=== PATIENT | male | born 2000 | race Caucasian/White ===

== ENCOUNTER 2023-05-15 10:36 | Outpatient (REF) | payer OTHER, SELFPAY | END 2023-05-15 10:37 | disposition home or self-care (01) | LOC: HO.LNP 10:36 | PROVIDERS: PCP Internal Medicine; Referring Provider Internal Medicine; Visit Provider Surgery | DX: L72.0 Epidermal cyst (principal) | CPT/HCPCS: 11403; 88304 ==

== ENCOUNTER 2023-05-15 10:36 | Outpatient (AMB) | payer OTHER, SELFPAY ==
[2023-05-15 10:41] VITALS: BP 128/60; PULSE 65; BMI 28.7
--- NOTE | 2023-05-15 10:41 | MHC.OFFVIS ---
Intake Vital Signs 05/15/23 10:41 Height 6 ft Weight 212 lb BMI 28.7 BP 128/60 Blood Pressure Location Rt brachial Position Sitting Pulse 65 Intake Visit Reasons: Sebaceous cyst, anterior chest wall Intake Note: Patient referred for cyst on mid chest. Has been present for 2-3 yrs. C/o discomfort to touch. Denies oozing, itch. 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 He has had this indeterminate time. His increasing size, become more symptomatic. He wished to have the it excised. Chart was reviewed patient evaluated COUNTS INCLUDE 234 BEDS AT THE [facility] Social History (Updated 05/15/23 @ 10:47 by PAVEL Figueroa) Alcohol intake: never Patient Tobacco Use Status: Never used Tobacco Physical Exam Vital Signs: Last Vital Signs Pulse 65 05/15/23 10:41 BP 128/60 05/15/23 10:41 BMI result Body Mass Index 28.7 Chest Other: Approximately 3 x 2 cm mid anterior chest wall mass consistent with a large sebaceous cyst. Office Procedures Excision Details: Risks, benefits, alternatives of excision of anterior chest wall cyst reviewed the patient and included but not limited to bleeding, infection, recurrence, numbness, pain, scarring the patient was to proceed. All questions were answered. After appropriate positioning, patient underwent 1% lidocaine and Betadine prep and a transverse incision was made between his 2 anterior chest wall tattoos in the mid anterior chest over the cyst in question and carried down through skin, subcutaneous tissue, with uneventful excision of approximately 3 x 2 cm sebaceous cyst was uneventfully performed. Specimen sent to pathology. Wound was irrigated, secured hemostasis, and closed using running 3-0 Vicryl suture followed by Steri-Strips and sterile dressings. Patient tolerated procedure well. 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 Patient will see me as directed or p.r.n.. Orders: Orders AMB Excision Today L72.3 - Sebaceous cyst Coding Level of Care Code New Pt Level 4 (31739) Diagnoses Sebaceous cyst L72.3 CPT Codes Trunk/Arms/Legs - CPT: 00699-nytqe/arms/legs 2.1-3cm ([id number])
== END 2023-05-15 11:10 | disposition home or self-care (01) ==
PROVIDERS: PCP Internal Medicine; Referring Provider Internal Medicine; Visit Provider Surgery
DX: L72.0 Epidermal cyst (principal)
CPT/HCPCS: 11403; 99204

== ENCOUNTER 2023-05-21 09:33 | Outpatient (AMB) | payer OTHER, SELFPAY ==
[2023-05-21 09:36] VITALS: BP 124/62; PULSE 93; BMI 28.5
--- NOTE | 2023-05-21 09:36 | MHC.OFFVIS ---
Intake Vital Signs 05/21/23 09:36 Height 6 ft Weight 210 lb BMI 28.5 BP 124/62 Blood Pressure Location Rt brachial Position Sitting Pulse 93 Intake Visit Reasons: s/p excision of sebaceous cyst, chest wall Intake Note: Patient here s/p exc on chest. Reports incision healing well. Denies pain, oozing, itch. 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 He has no wound issues or complaints. Pathology is benign. [facility] Surgical History History of excision of epidermal inclusion cyst (05/15/23) Social History Alcohol intake: never Patient Tobacco Use Status: Never used Tobacco Physical Exam Vital Signs: Last Vital Signs Pulse 93 05/21/23 09:36 BP 124/62 05/21/23 09:36 BMI result Body Mass Index 28.5 Chest Other: Wound clean dry and intact healing uneventfully Assessment & Plan Assessment & Plan (1) Sebaceous cyst: Code(s): L72.3 - Sebaceous cyst Plan Patient has been given local wound instructions, and will follow-up p.r.n. Coding Level of Care Code Global (86916) Diagnoses Sebaceous cyst L72.3
== END 2023-05-21 09:41 | disposition home or self-care (01) ==
PROVIDERS: PCP Internal Medicine; Visit Provider Surgery
DX: L72.3 Sebaceous cyst (principal)
CPT/HCPCS: 99024

== ENCOUNTER → 2023-05-21 09:33 | Outpatient (BNVA) | payer OTHER, SELFPAY | PROVIDERS: PCP Internal Medicine; Visit Provider Surgery ==

== ENCOUNTER 2023-10-11 13:40 | Outpatient (REF) | payer OTHER, SELFPAY ==
--- NOTE | ~2023-10-11 | MR_ITS ---
EXAMINATION: MR LOWER LEG WITHOUT CONTRAST, RIGHT CLINICAL INFORMATION: Remote injury. Right calf pain. Myositis ossificans. Paresthesias. COMPARISON: None available. TECHNIQUE: Multisequence MR imaging of the right lower leg was obtained without contrast on a high-field strength scanner. FINDINGS: BONE: No marrow edema. No stress reaction, fracture, or avascular necrosis. No concerning lytic or blastic osseous lesion. MUSCLES/TENDONS: Along the anterior margin of the mid medial gastrocnemius muscle, there is a lobulated fat signal focus measuring 2.7 x 2.9 x 12 cm (AP by ML by CC). This appears to be intramuscular with mild expansion. There are internal septae without an associated soft tissue mass. No inflammatory change or adjacent soft tissue edema. Findings could represent an intramuscular lipoma. No definite calcification; however, evaluation is somewhat limited on MR imaging. Otherwise, the visualized muscles and tendons are intact. No edema or evidence of acute injury. No evidence of acute myositis. SOFT TISSUES: No additional soft tissue mass or fluid collection. MR/MR lower leg RT wo con IMPRESSION: 1. Lobulated fat signal focus along the anterior margin of the mid medial gastrocnemius muscle measuring up to 12 cm. This appears to be intramuscular with mild expansion. No associated soft tissue mass or inflammatory change. Findings could represent an intramuscular lipoma. No definite calcification, however, evaluation somewhat limited on MR imaging. 2. No acute muscle or tendon injury.
== END 2023-10-11 13:41 | disposition home or self-care (01) ==
LOC: HO.MRI 13:40
PROVIDERS: Visit Provider Internal Medicine
DX: M79.661 Pain in right lower leg (principal); R20.2 Paresthesia of skin
CPT/HCPCS: 73718

== ENCOUNTER 2024-06-06 18:15 | Emergency (ER) | payer OTHER, SELFPAY ==
--- NOTE | ~2024-06-06 | CT_ITS ---
EXAMINATION: CT HEAD WITHOUT CONTRAST CLINICAL INFORMATION: Left-sided facial weakness COMPARISON: None available. TECHNIQUE: Contiguous axial imaging was performed from the skull base to vertex without intravenous administration of contrast. This CT examination was performed using dose optimization techniques as appropriate, variously including the following: *Automated exposure control *Adjustment of mA and/or kV according to patient size (this includes techniques or standardized protocols for targeted exams where dose is matched to indication/reason for exam; i.e. extremities or head) *Use of iterative reconstruction technique DLP: 730 mGy-cm RESULTS: There is no evidence of acute intracranial hemorrhage, acute large vessel infarct, midline shift or mass effect. The anders-white differentiation is preserved. The ventricles and sulci are within normal limits in size and configuration. There is no evidence of hydrocephalus. There are no extraaxial collections. Osseous structures are intact. Paranasal sinuses and mastoid air cells are well aerated. CT/CT head/brain wo IV con IMPRESSION: Unremarkable non-contrast CT of the brain. Electronically signed by: Mari Barry MD 06/06/2024 06:40 PM EDT
[2024-06-06 18:16] VITALS: BP 130/97; PULSE 77; RESP 16; TEMP 36.6; O2SAT 98; BMI 33.0
--- NOTE | 2024-06-06 18:19 | ED.GENADULT ---
HPI - General Adult General Chief complaint: Neuro Symptoms/Deficit Stated complaint: Left side face numbness Time Seen by Provider: 06/06/24 20:13 Source: patient Limitations: no limitations History of Present Illness ED Provider: Florecita faulkner PA-C HPI narrative: 19-year-old otherwise healthy male presents with left-sided facial droop x2 days. Symptoms are subtle, but they involve the eye in the corner of the mouth. Sensation intact. 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 No preceding head trauma. Related Data Home Medications ?Medication ?Instructions ?Recorded ?Confirmed No Known Home Meds 05/15/23 Allergies Allergy/AdvReac Type Severity Reaction Status Date / Time No Known Allergies Allergy Verified 06/06/24 18:24 [No Known Allergies*] Review of Systems Review of Systems: Yes all other systems are reviewed and are negative Constitutional: Constitutional: Denies fatigue, Denies fever(s), Denies headache(s) and Denies weakness Eyes: Eyes: Denies loss of vision ENT: Denies dizziness and Denies headache(s) Cardiovascular: Cardiovascular: Denies chest pain and Denies dyspnea Respiratory: Respiratory: Denies cough and Denies dyspnea Musculoskeletal: Musculoskeletal: Denies myalgias, Denies arthralgias, Denies joint swelling and Denies numbness Integumentary/Breasts: Skin/Breast: Denies new lesions and Denies rash Neurologic: Denies dizziness, Denies headache(s), Denies loss of vision, Denies numbness and Denies weakness Endocrine: Endocrine: Denies fatigue PMFSH Past Medical History Attestation statement: The following information was validated with the patient. Surgical History History of excision of epidermal inclusion cyst (05/15/23) Social History Social History Alcohol intake: never Patient Tobacco Use Status: Never used Tobacco Advance Directives: No Advance Directives Information Provided: No Physical Exam ED Vital Signs: Vital Signs - 24 hr 06/06/24 18:16 06/06/24 21:25 Temperature 98 F 98 F Pulse Rate 77 77 Respiratory Rate 16 16 Blood Pressure 130/97 H 130/97 H Pulse Oximetry 98 98 Oxygen Delivery Method Room Air Room Air BMI result Body Mass Index 33.0 Const Other: Alert, overall well in appearance Orientation/consciousness: patient oriented x3 Resp Other: Nonlabored respiration Cardio Other: Normal peripheral perfusion Skin Other: Warm dry no rash Neuro Other: Subtle facial droop noted on the left involving the eye in the corner of the mouth, sensation intact, General: patient oriented x3, gait normal and no focal motor deficits Extrem Other: Strength 5/5 bilateral upper and lower extremities with resistance Psych Other: Alen cooperative Course Course Course Narrative: This is an RME: Additional HPI, ROS, PE not included below will be deferred to primary provider. RME assessment and note performed by: Shayna Estrada PA-C This is a [id number]- male, with a past medical history of myositis ossificans, who presents emergency department with complaints of left-sided facial numbness for the last 2 days. Also stating left side of tongue is numb. Patient with left-sided facial droop, with inability to raise left eyebrow. Asymmetric smile, tongue is midline. Strength in upper and lower extremities equal. Likely Allen's palsy. 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 He denies any specific incident where he would have hit his head. He is not on anticoagulation. Plan: Labs, CT head given possible head injury, further ER evaluation needed Medical Decision Making Medical Decision Making MDM Narrative: 19-year-old otherwise healthy male presents with left-sided facial droop x2 days. Symptoms are subtle, but they involve the eye in the corner of the mouth. Sensation intact. 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 No preceding head trauma. No relevant chronic issues History: Per patient I have considered the following differential diagnoses: Allen's palsy, CVA, head trauma with facial nerve damage Plan: Patient is assessment began from triage, there was question that he had head trauma, they ordered a CT scan. Screening labs including a tick panel were obtained as well, the tick panel is in process and will not result tonight. Patient's symptoms are consistent with Allen's palsy. We will send with home care instructions.This is not A stroke. I have independently reviewed the following tests: Labs: No leukocytosis, not anemic, no electrolyte abnormality, tick panel and process CT brain: CT/CT head/brain wo IV con IMPRESSION: Unremarkable non-contrast CT of the brain. Electronically signed by: Mari Barry MD 06/06/2024 06:40 PM EDT Lab Data 06/06/24 18:50 06/06/24 18:50 Labs: Lab Results 06/06/24 Range/Units 18:50 WBC 8.3 (4.8-10.8) X10*3/uL RBC 4.73 (4.60-5.80) X10*6/uL Hgb 15.1 (14.0-18.0) g/dl Hct 41.5 L (42.0-52.0) % MCV 87.7 (80.0-98.0) fL MCH 31.9 (27.0-33.0) pg MCHC 36.4 H (31.0-36.0) g/dl RDW 12.0 (11.0-16.0) % Plt Count 270 (160-400) X10*3/uL MPV 10.3 (9.4-12.4) fL Immature Gran % (Auto) 0.4 (0.0-0.4) % Neut % (Auto) 68.2 (45-73) % Lymph % (Auto) 22.1 (20-40) % Jay % (Auto) 8.4 (2-11) % Eos % (Auto) 0.5 (0-4) % Baso % (Auto) 0.4 (0-2) % Lymph # (Auto) 1.8 (1.2-4.9) X10*3/uL Jay # (Auto) 0.7 (0.1-1.2) X10*3/uL Eos # (Auto) 0.0 (0.0-0.4) X10*3/uL Baso # (Auto) 0.0 (0.0-0.2) X10*3/uL Abs Immat Gran (auto) 0.03 (0.00-0.03) X10*3/uL Absolute Neuts (auto) 5.7 (2.0-8.3) x10*3/uL Absolute Nucleated RBC 0.000 (0.0-0.012) X10*3/uL Nucleated RBC % (auto) 0.0 (0.0-0.2) /100WBC ESR 3 (0-15) MM/HR PT 10.8 L (10.9-12.4) SEC INR 0.9 (0.9-1.1) APTT 30.2 (26.0-36.8) SEC Sodium 141 (135-145) mmol/L Potassium 3.9 (3.3-5.1) mmol/L Chloride 106 (96-108) mmol/L Carbon Dioxide 23 (22-29) mmol/L Anion Gap 16 (12-20) BUN 19 H (9-16) mg/dL Creatinine 0.87 (0.5-1.4) mg/dL Estim Creat Clear Calc 168.0 Estimated GFR > 60 Random Glucose 95 (60-115) mg/dL Calcium 9.8 (8.4-10.2) mg/dL Total Bilirubin 0.4 (0.0-1.0) mg/dL Direct Bilirubin 0.1 (0.0-0.5) mg/dL AST 24 (5-37) U/L ALT 34 (0-40) U/L Alkaline Phosphatase 72 (39-117) U/L Total Creatine Kinase 235 H (38-174) U/L C-Reactive Protein < 0.04 (< or = 0.50) mg/dL Total Protein 7.9 (6.5-8.0) g/dL Albumin 5.0 (3.5-5.0) g/dL Discharge Plan Discharge Clinical Impression: Left-sided Allen's palsy Patient Disposition: Home, Self-Care Instructions: Allen Palsy (ED) Additional Instructions: All of your labs are normal, the CT scan of the brain was unremarkable. You have Allen's palsy. See home care instructions. The weakness on the left side of your face we will resolve with time. Follow up with your primary care provider as needed. You were screened for a tick panel, those results are pending. If you screen positive, someone will contact you and we will send antibiotics to a pharmacy of your choice. Prescriptions: No Action No Known Home Meds Interventions: ED Discharge Assessment Last Done: 06/06/24 21:25 Discharge Date/Time: 06/06/24 21:26 Print Language: Setswana
[2024-06-06 18:57] LABS: MANUAL DIFF FLAG NO
[2024-06-06 18:58] LABS: Basophils Percent Auto 0.4 % (0-2); Eosinophils Percent Auto 0.5 % (0-4); Hematocrit 41.5 % (42.0-52.0); Hemoglobin 15.1 g/dl (14.0-18.0); Imm Gran Abs Auto 0.03 X10*3/uL (0.00-0.03); Imm Gran Pct Auto 0.4 % (0.0-0.4); Lymphocytes Absolute Auto 1.8 X10*3/uL (1.2-4.9); Lymphocytes Percent Auto 22.1 % (20-40); Mean Corpuscular HGB Conc 36.4 g/dl (31.0-36.0); Mean Corpuscular Hemoglobin 31.9 pg (27.0-33.0); Mean Corpuscular Volume 87.7 fL (80.0-98.0); Mean Platelet Volume 10.3 fL (9.4-12.4); Monocytes Absolute Auto 0.7 X10*3/uL (0.1-1.2); Monocytes Percent Auto 8.4 % (2-11); Neutrophils Absolute Auto 5.7 x10*3/uL (2.0-8.3); Neutrophils Percent Auto 68.2 % (45-73); Platelet Count 270 X10*3/uL (160-400); Red Blood Count 4.73 X10*6/uL (4.60-5.80); White Blood Count 8.3 X10*3/uL (4.8-10.8)
[2024-06-06 19:17] LABS: INTERNATIONAL NORM RATIO 0.9 (0.9-1.1); Prothrombin Time 10.8 SEC (10.9-12.4)
[2024-06-06 19:19] LABS: Alanine Aminotransferase 34 U/L (0-40); Alkaline Phosphatase 72 U/L (39-117); Anion Gap 16 (12-20); Aspartate Amino Transferase 24 U/L (5-37); Bilirubin Direct 0.1 mg/dL (0.0-0.5); Bilirubin Total 0.4 mg/dL (0.0-1.0); Blood Urea Nitrogen 19 mg/dL (9-16); C Reactive Protein < 0.04 mg/dL (< or = 0.50); Calcium 9.8 mg/dL (8.4-10.2); Carbon Dioxide 23 mmol/L (22-29); Chloride 106 mmol/L (96-108); Estimated Glomerular Filt Rate > 60; Glucose Random 95 mg/dL (60-115); Potassium 3.9 mmol/L (3.3-5.1); Sodium 141 mmol/L (135-145); Total Protein 7.9 g/dL (6.5-8.0)
[2024-06-06 19:20] LABS: Partial Thromboplastin Time 30.2 SEC (26.0-36.8)
[2024-06-06 19:53] LABS: Erythrocyte Sedimentation Rate 3 MM/HR (0-15)
[2024-06-06 21:25] VITALS: BP 130/97; PULSE 77; RESP 16; TEMP 36.6; O2SAT 98
[2024-06-08 16:09] LABS: Lyme Abs Screen <0.90 index
[2024-06-11 19:24] LABS: Babesia IgG <1:64 titer (<1:64); Babesia IgM <1:20 titer (<1:20)
[2024-06-15 00:18] LABS: A. Phagocytophilum Ab IgM <1:20 (<1:20); E. Chaffeensis Ab IgG <1:64 (<1:64); E. Chaffeensis Ab IgM <1:20 (<1:20); Interpretation PAST INFECTION
== END 2024-06-06 21:26 | disposition home or self-care (01) ==
PROVIDERS: Physician Assistant Medical; Emergency Provider Emergency Medicine
DX: G51.0 Bell's palsy (principal); R20.0 Anesthesia of skin; R79.1 Abnormal coagulation profile
CPT/HCPCS: 36415; 70450; 80048; 80076; 82550; 85025; 85610; 85652; 85730; 86140; 86617; 86618; 86666; 86753; 99282; 99284